=== PATIENT | male | born 1995 | race Caucasian/White ===

== ENCOUNTER 2016-11-05 21:21 | Emergency (ER) | payer SELFPAY ==
[2016-11-05 21:44] VITALS: BP 121/69
[2016-11-05] MEDS ORDERED: Ibuprofen 600 MG Tab PO ONE (22:15)
--- NOTE | 2016-11-05 22:18 | EDM.PDOC ---
ED HPI GENERAL MEDICAL PROBLEM - General Chief Complaint: Respiratory Problem Stated Complaint: SINUS ISSUES Time Seen by Provider: 11/05/16 22:10 Source of Information: Reports: Patient History Limitations: Reports: No Limitations - History of Present Illness INITIAL COMMENTS - FREE TEXT/NARRATIVE: Trevor is a 20 year old male who presents to the ED today with c/o sore throat , nasal congestion, rhinorrhea and cough for the last 2-3 days. Patient denies any fever/chills/nausea/vomiting/diarrhea. Patient did c/o headache yesterday, relieved with aspirin. Patient has not taken any other medications for his symptoms. Patient does smoke 1/2 pack of cigarettes per day. Headache Pain Score (Numeric/FACES): 8 - Related Data Allergies Allergy/AdvReac Type Severity Reaction Status Date / Time No Known Allergies Allergy Verified 11/05/16 21:36 Home Meds: Home Meds NK [No Known Home Meds] 12/03/14 [History] Past Medical History - Past Health History Medical/Surgical History: Denies Medical/Surgical History Respiratory History: Reports: Bronchitis, Recurrent, Pneumonia, Recurrent Neurological History: Reports: Concussion Psychiatric History: Reports: ADHD, Bipolar Other Dermatologic History: mole on back - it keeps growing - Infectious Disease History Infectious Disease History: Reports: Chicken Pox Social & Family History - Family History Musculoskeletal: Reports: Arthritis, Back pain, Chronic Oncologic: Reports: Breast - Tobacco Use Smoking Status *Q: Current Every Day Smoker Years of Tobacco use: 5 Packs/Tins Daily: 0.5 Used Tobacco, but Quit: No Second Hand Smoke Exposure: Yes - Caffeine Use Caffeine Use: Reports: Energy Drinks, Soda - Alcohol Use Days Per Week of Alcohol Use: 0 - Recreational Drug Use Recreational Drug Use: No ED ROS GENERAL - Review of Systems Review Of Systems: ROS reveals no pertinent complaints other than HPI. ED EXAM, GENERAL - Physical Exam Exam: See Below Exam Limited By: No Limitations General Appearance: Alert, WD/WN, No Apparent Distress Ears: Normal External Exam, Normal TMs Nose: Normal Inspection, Normal Mucosa, No Blood Throat/Mouth: Normal Inspection, No Airway Compromise, Other (injection to posterior oropharynx) Neck: Normal Inspection, Supple, Lymphadenopathy (R) (+2), Lymphadenopathy (L) Respiratory/Chest: No Respiratory Distress, Lungs Clear, Normal Breath Sounds Cardiovascular: Normal Peripheral Pulses, Regular Rate, Rhythm, No Murmur GI/Abdominal: Normal Bowel Sounds Extremities: Normal Inspection, Normal Range of Motion Neurological: Alert, Oriented, CN II-XII Intact Psychiatric: Normal Affect, Normal Mood Skin Exam: Warm, Dry, Intact Lymphatic: Adenopathy (bilateral anterior cervical) Course - Vital Signs Text/Narrative:: Trevor is a 20 year old male who presents to the ED with viral URI symptoms for the last 2-3 days. Please refer to HPI and focused exam. Patient on exam is well hydrated, he is non-toxic appearing. Strep swab was obtained and is negative. I discussed viral URI symptoms and supportive care with patient, encouraged ibuprofen and tylenol, I did prescribe flonase nasal for congestion. PCP follow up in one week. No interest in smoking cessation at this time. Return to the ED with any complications/worsening symptoms. Patient agreeable and discharged in stable condition. Last Recorded V/S: Last Vital Signs Temp 37.4 C 11/05/16 21:42 Pulse 92 11/05/16 21:42 Resp 16 11/05/16 21:42 BP 121/69 11/05/16 21:42 Pulse Ox 97 11/05/16 21:42 - Orders/Labs/Meds Orders: Active Orders 24 hr Category Date Time Status CULTURE STREP A CONFIRMATION [] Stat Lab 11/05/16 22:29 Results STREP SCRN A RAPID W CULT CONF [] Stat Lab 11/05/16 22:29 Results Meds: Medications Discontinued Medications Generic Name Dose Route Start Last Admin Trade Name Freq PRN Reason Stop Dose Admin Ibuprofen 600 mg 11/05/16 22:15 11/05/16 22:28 Motrin PO 11/05/16 22:16 600 mg ONETIME ONE Administration Departure - Departure Time of Disposition: 23:00 Disposition: Home, Self-Care 01 Condition: Good Clinical Impression: Viral URI - Discharge Information Instructions: Smoking Cessation, Tips for Success, [id number], Viral Respiratory Infection Forms: ED Department Discharge Additional Instructions: Trevor, take Ibuprofen as prescribed, you can alternate this with Tylenol as needed. Try using the flonase, this will help with nasal congestion/sinus pressure. Make sure you drink plenty of fluids. Follow up with your primary doctor if symptoms worsen/don't improve in the next 7-10 days - My Orders Last 24 Hours: My Active Orders 11/05/16 22:29 CULTURE STREP A CONFIRMATION [RM] Stat STREP SCRN A RAPID W CULT CONF [] Stat - Assessment/Plan Last 24 Hours: My Active Orders 11/05/16 22:29 CULTURE STREP A CONFIRMATION [RM] Stat STREP SCRN A RAPID W CULT CONF [] Stat
== END 2016-11-05 23:07 | disposition home or self-care (01) ==
LOC: JP.ED 21:21
DX: J06.9 Acute upper respiratory infection, unspecified (principal); B97.89 Other viral agents as the cause of diseases classified elsewhere; F17.210 Nicotine dependence, cigarettes, uncomplicated
CPT/HCPCS: 87081; 87430; 99284; A9270; 99282

== ENCOUNTER 2022-05-12 01:59 | Emergency (ER) | payer MEDICAID, OTHER ==
[2022-05-12] MEDS ORDERED: Sodium Chloride 0.9% 10 ML Syringe FLUSH PRN (02:07)
[2022-05-12] MEDS: LORazepam 2 MG/ML SDV IVPUSH ONE ×2 (02:13→04:58)
[2022-05-12] MEDS ORDERED: LORazepam 2 MG/ML SDV IVPUSH STA (02:18)
[2022-05-12] MEDS ORDERED: Haloperidol Lactate 5 MG/ML SDV IVPUSH ONE (02:19)
[2022-05-12 02:22] LABS: ESTIMATED GFR 107 mL/min (>60)
[2022-05-12] MEDS ORDERED: LORazepam 2 MG/ML SDV IVPUSH ONE (02:43)
[2022-05-12 03:08] VITALS: BP 137/83; PULSE 113
[2022-05-12] MEDS ORDERED: Lactated Ringers 1,000 ML IV SCH (04:00)
[2022-05-12] MEDS ORDERED: Diphtheria,Pertussis(Acell),Tetanus Vaccine 0.5 ML Syringe IM ONE (04:04)
== END 2022-05-12 04:37 ==
LOC: JP.ED 01:59
DX: S01.112A Laceration without foreign body of left eyelid and periocular area, initial encounter (principal); S30.1XXA Contusion of abdominal wall, initial encounter; S00.33XA Contusion of nose, initial encounter; F10.920 Alcohol use, unspecified with intoxication, uncomplicated; Y90.8 Blood alcohol level of 240 mg/100 ml or more; Z23 Encounter for immunization; V89.2XXA Person injured in unspecified motor-vehicle accident, traffic, initial encounter; Y92.410 Unspecified street and highway as the place of occurrence of the external cause
CPT/HCPCS: 36415; 70450; 71045; 72125; 72170; 73560; 76377; 80053; 80305; 80307; 81001; 82803; 83605; 85025; 85610; 85730; 87635; 90471; 90715; 96374; 96375; 99291; J1630; J2060; J3490; J7120; U0002